=== PATIENT | female | born 1965 | race Caucasian/White ===

== ENCOUNTER 2016-04-21 10:20 | Emergency (ER) | payer BC ==
[~2016-04-21] VITALS: Wt 65.0 kg
[~2016-04-21 10:20] MED LIST: ACET325T33 PO; DOCU-144 PO; NITR-58 PO; POLY17PO6 PO
--- NOTE | 2016-04-21 11:29 | ERD ---
ER Documentation Chief Complaint Date/Time DATE: 04/21/16 TIME: 11:29 Chief Complaint dysuria for 2 days with nausea no vomiting. no diarrhea . HPI 50-year-old female otherwise healthy comes in the emergency room painful urination for the past 2 days. She reports burning as well as urgency, no nausea, vomiting, abdominal pain. She denies any flank pain or hematuria. She does also notes pressure-like pain pointing to her suprapubic region. ROS All systems reviewed and are negative except as per history of present illness. Medications Home Meds Active Scripts Nitrofurantoin Monohyd Macrocr* (Macrobid*) 100 Mg Capsr, 100 MG PO BID for 7 Days, CAP Prov:CASSANDRA ROCK PA-C 04/21/16 Phenazopyridine Hcl* (Pyridium*) 100 Mg Tab, 100 MG PO TID Y for URINARY PAIN, # 8 TAB Prov:CASSANDRA ROCK PA-C 04/21/16 Acetaminophen* (Tylenol*) 325 Mg Tablet, 2 TAB PO Q8 Y for PAIN AND OR ELEVATED TEMP, #20 TAB Prov:ALEJANDRA SAVAGE PA-C 11/05/15 Polyethylene Glycol* (Miralax*) 17 Gm Powd.pack, 17 GM PO DAILY, #7 Prov:ALEJANDRA SAVAGE PA-C 11/05/15 Docusate Sodium* (Colace*) 100 Mg Capsule, 100 MG PO TID, #30 CAP Prov:ALEJANDRA SAVAGE PA-C 11/05/15 Nitrofurantoin Monohyd Macrocr* (Macrobid*) 100 Mg Capsr, 100 MG PO BID for 14 Days, CAP Prov:ALEJANDRA SAVAGE PA-C 11/05/15 Allergies Allergies: Coded Allergies: No Known Allergy (Unverified , 11/05/15) PMhx/Soc History of Surgery: No Anesthesia Reaction: No Hx Neurological Disorder: No Hx Respiratory Disorders: No Hx Cardiac Disorders: No Hx Psychiatric Problems: No Hx Miscellaneous Medical Probl: No Hx Alcohol Use: No Hx Substance Use: No Hx Tobacco Use: No Physical Exam Vitals Vital Signs Date Time Temp Pulse Resp B/P Pulse Ox O2 Delivery O2 Flow Rate FiO2 04/21/16 10:35 98.1 87 21 134/74 98 Physical Exam General: Well-developed, well-nourished. The patient appears in no acute distress. HEENT: Head is normocephalic, atraumatic. No scleral icterus. Neck: Supple. Nontender. Lungs: Clear to auscultation. Normal air movement. Heart: Regular rate and rhythm. S1 and S2 are normal. No murmurs, gallops, or rubs. Abdomen: Soft, nontender, nondistended. Bowel sounds are normoactive. Extremities: No clubbing or cyanosis. Normal pulses. Moving extremities x 4. No weakness. Neurologic: Alert and oriented 3. No focal deficits. Skin: Normal turgor. No rash or lesions. Results 24 hrs Laboratory Tests Test 04/21/16 11:39 Bedside Urine Blood 3+ Bedside Urine Glucose (UA) Negative Bedside Urine Ketones (LAB) Negative Bedside Urine Leukocyte Esterase (L 2+ Bedside Urine Nitrite (LAB) Positive Bedside Urine Protein (LAB) 1+ Bedside Urine pH (LAB) 7.5 Current Medications Medications (Trade) Dose Ordered Sig/Estephania Route PRN Reason Start Time Stop Time Status Last Admin Dose Admin Nitrofurantoin Macrocrystals (Macrobid) 100 mg ONCE ONCE PO 04/21/16 12:00 04/21/16 12:01 Phenazopyridine HCl (Pyridium) 100 mg ONCE ONCE PO 04/21/16 12:00 04/21/16 12:01 Procedures/MDM 50 year old female comes to the ER with a UTI, no evidence of pyelonephritis, and she has no flank pain indicated further imaging including CT abdomen pelvis. She is afebrile, without any surgical and acute abdominal process. She is given a dose of Macrobid as well as Pyridium in the emergency department will prescribe same medications to take home. Departure Diagnosis: Primary Impression: UTI (urinary tract infection) Condition: Good CASSANDRA ROCK PA-C Apr 21, 2016 11:29
[2016-04-21 11:38] LABS: URINE BLOOD (Dip) POC 3+ (NEGATIVE)
[2016-04-21] MEDS ORDERED: NITR-58 PO (11:48)
[2016-04-21] MEDS ORDERED: PHEN-537 PO (11:48)
[2016-04-21] MEDS ORDERED: NITROFURANTOIN (SR) 100 MG CAP PO ONE (12:00)
[2016-04-21] MEDS ORDERED: PHENAZOPYRIDINE 100 MG TAB PO ONE (12:00)
== END 2016-04-21 11:59 | disposition home or self-care (01) ==
LOC: FTE 10:20
DX: N39.0 Urinary tract infection, site not specified (principal)
CPT/HCPCS: 81003; Z7502; Z7610; 99283

== ENCOUNTER 2018-01-26 09:44 | Emergency (ER) | END 2018-01-26 11:56 | disposition home or self-care (01) ==